=== PATIENT | female | born 1960 | race Caucasian/White ===

== ENCOUNTER 2019-07-15 15:28 | Outpatient (REF) | payer SELFPAY ==
[2019-07-15 16:30] LABS: Estmated Average Glucose 120; Hemoglobin A1C 5.8 % (4.0-6.0)
[2019-07-15 19:25] LABS: Chol HDL Ratio 4.97 mg/dL (0.0-4.40); Cholesterol 194 mg/dL (0-200); Glucose 90 mg/dL (65-115); HDL Cholesterol 39 mg/dL (60-100); LDL Cholesterol Calculated 113 mg/dL (50-129); Triglycerides 212 mg/dL (0-150)
== END 2019-07-15 15:29 | disposition home or self-care (01) ==
LOC: LAB 15:28
PROVIDERS: Family Provider Nurse Practitioner; PCP Nurse Practitioner; Visit Provider Dermatology
DX: Z13.9 Encounter for screening, unspecified (principal)
CPT/HCPCS: 80061; 82947; 83036

== ENCOUNTER → 2019-09-03 15:57 | Outpatient (BNVA) | payer BC, SELFPAY | PROVIDERS: Family Provider Nurse Practitioner; PCP Nurse Practitioner; Visit Provider Nurse Practitioner | DX: M25.562 Pain in left knee (principal); M17.12 Unilateral primary osteoarthritis, left knee | CPT/HCPCS: 73562 ==

== ENCOUNTER → 2020-03-03 08:35 | Outpatient (BNVA) | payer BC, SELFPAY | PROVIDERS: Family Provider Nurse Practitioner; PCP Nurse Practitioner; Visit Provider Nurse Practitioner | DX: E78.2 Mixed hyperlipidemia (principal); I10 Essential (primary) hypertension | CPT/HCPCS: 80053; 80061 ==

== ENCOUNTER 2020-03-30 11:18 | Outpatient (CLI) | payer BC, SELFPAY ==
--- NOTE | 2020-03-30 11:30 | MM_ITS ---
WS: [id number] BILATERAL DIGITAL DIAGNOSTIC MAMMOGRAM MAMMOGRAPHY WITH CAD CLINICAL INFORMATION: History breast left side COMPARISON: TECHNIQUE: Bilateral CC, MLO, and ML views. FINDINGS: Scattered fibroglandular densities bilaterally. Postoperative changes left breast with skin thickenin g. Dystrophic calcification. Parenchymal fibrosis. Lucent centered calcifications. Right breast is un changed in appearance. No suspicious focal mass, asymmetry, calcifications, or architectural distortion. No evidence of doyle gnancy. MM/[place] [id number] IMPRESSION: BI-RADS: 2-Benign FOLLOW UP: 1 Year Follow-up Recommend return to annual diagnostic mammography.
== END 2020-03-30 11:19 | disposition home or self-care (01) ==
LOC: RADSHAW 11:20
PROVIDERS: PCP Nurse Practitioner; Visit Provider Nurse Practitioner
DX: Z85.3 Personal history of malignant neoplasm of breast (principal)
CPT/HCPCS: 77066

== ENCOUNTER → 2020-09-19 09:20 | Outpatient (BNVA) | payer OTHER, SELFPAY | PROVIDERS: PCP Nurse Practitioner; Visit Provider Nurse Practitioner | DX: I10 Essential (primary) hypertension (principal); J30.1 Allergic rhinitis due to pollen; E78.2 Mixed hyperlipidemia | CPT/HCPCS: 80053; 80061; 84443 ==

== ENCOUNTER → 2021-03-07 08:00 | Outpatient (BNVA) | payer OTHER, SELFPAY | PROVIDERS: PCP Nurse Practitioner; Visit Provider Nurse Practitioner | DX: I10 Essential (primary) hypertension (principal); E78.2 Mixed hyperlipidemia | CPT/HCPCS: 80053; 80061; 81000 ==

== ENCOUNTER 2021-04-04 14:30 | Outpatient (CLI) | payer OTHER, SELFPAY ==
--- NOTE | 2021-04-04 14:35 | MM_ITS ---
WS: [email or web address] BILATERAL DIGITAL DIAGNOSTIC MAMMOGRAM MAMMOGRAPHY WITH CAD CLINICAL INFORMATION: HX OF BREAST CA COMPARISON: March 30, 2020 TECHNIQUE: Bilateral CC, MLO, and ML views. FINDINGS: Scattered fibroglandular densities bilaterally. Postoperative changes lumpectomy upper outer left primo ast with dystrophic and lucent centered calcifications. Associated parenchymal fibrosis. This is stab le in appearance compared to previous. No suspicious focal mass, asymmetry, calcifications, or architectural distortion. No evidence of doyle gnancy. MM/[place] [id number] IMPRESSION: BI-RADS: 2-Benign FOLLOW UP: 1 Year Follow-up Recommend return to annual diagnostic mammography.
== END 2021-04-04 14:31 | disposition home or self-care (01) ==
LOC: RADSHAW 14:33
PROVIDERS: PCP Nurse Practitioner; Visit Provider Nurse Practitioner
DX: Z85.3 Personal history of malignant neoplasm of breast (principal)
CPT/HCPCS: 77066

== ENCOUNTER → 2022-03-14 10:27 | Outpatient (BNVA) | payer OTHER, SELFPAY | PROVIDERS: PCP Nurse Practitioner; Visit Provider Nurse Practitioner | DX: I10 Essential (primary) hypertension (principal); E78.2 Mixed hyperlipidemia; Z12.39 Encounter for other screening for malignant neoplasm of breast | CPT/HCPCS: 80053; 80061; 81000; 84443; 85025 ==

== ENCOUNTER 2022-04-06 09:42 | Outpatient (CLI) | payer OTHER, SELFPAY ==
--- NOTE | 2022-04-06 09:53 | MM_ITS ---
WS: [email or web address] VIEWS: MLO, CC, and ML views both breasts. 3D digital tomosynthesis is also included in this exam. C omparisons 01/17/2018, 02/11/2019, 03/30/2020, 04/04/2021. Findings: There is an enlarging 5 mm ovoid nodule seen in the medial right breast probably near the 3:00 positi on. This is at posterior depth. No architectural distortion or suspicious calcification noted. Region al ultrasound and 90 degree lateral view of the right breast would be recommended for further workup. Stable appearing postoperative changes are noted in the upper outer quadrant of the left breast with no new finding in the left breast. Fatty MM/[place] [id number] Impression: BI-RADS: 0-Incomplete: Need additional imaging evaluation FOLLOW-UP: See Report This mammogram was also analyzed by the Computer Aided Detection System R2 Imag e Application Processor.
== END 2022-04-06 09:43 | disposition home or self-care (01) ==
LOC: RAD 09:43
PROVIDERS: PCP Nurse Practitioner; Visit Provider Nurse Practitioner
DX: Z85.3 Personal history of malignant neoplasm of breast (principal)
CPT/HCPCS: 77062; G0279

== ENCOUNTER 2022-04-25 14:54 | Outpatient (CLI) | payer OTHER, SELFPAY ==
--- NOTE | 2022-04-25 15:06 | US_ITS ---
WS: [email or web address] ULTRASOUND BREAST RIGHT TECHNIQUE: Ultrasound right breast focused area of concern. CLINICAL INFORMATION: ABNORMAL MAMMO/NODULE COMPARISON: April 06, 2022 FINDINGS: Previous mammogram reviewed. Small nodule in the inner RIGHT breast suspicious for tiny lymph node. S uggestion of a small fatty hilum. Ultrasound RIGHT breast lower inner quadrant. Normal underlying par enchymal tissue. No suspicious cystic or solid lesions. No lesions to target for biopsy. Recommend re turn to annual diagnostic mammography. US/US breast RT limited* [id number] IMPRESSION: BI-RADS 2 BENIGN Recommend return to annual diagnostic mammography.
== END 2022-04-25 14:55 | disposition home or self-care (01) ==
LOC: RAD 14:55
PROVIDERS: PCP Nurse Practitioner; Visit Provider Nurse Practitioner
DX: R92.8 Other abnormal and inconclusive findings on diagnostic imaging of breast (principal); R91.1 Solitary pulmonary nodule
CPT/HCPCS: 76642

== ENCOUNTER → 2022-09-24 13:47 | Outpatient (BNVA) | payer OTHER, SELFPAY | PROVIDERS: PCP Nurse Practitioner; Visit Provider Nurse Practitioner | DX: I10 Essential (primary) hypertension (principal); E78.5 Hyperlipidemia, unspecified | CPT/HCPCS: 80053; 80061 ==

== ENCOUNTER → 2023-03-19 09:22 | Outpatient (BNVA) | payer OTHER, SELFPAY | PROVIDERS: PCP Nurse Practitioner; Visit Provider Nurse Practitioner | DX: I10 Essential (primary) hypertension (principal); E55.9 Vitamin D deficiency, unspecified | CPT/HCPCS: 80053; 80061; 82306; 82607; 84443; 85025 ==

== ENCOUNTER 2023-04-29 10:56 | Outpatient (CLI) | payer OTHER, SELFPAY ==
--- NOTE | 2023-04-29 11:03 | MM_ITS ---
WS: [id number] DIAGNOSTIC BILATERAL DIGITAL BREAST TOMOSYNTHESIS MAMMOGRAPHY WITH CAD HISTORY: Z98.890 - Other specified postprocedural states, history of LEFT breast cancer. COMPARISON: 04/06/2020 and 04/04/2021 and 03/30/2020 TECHNIQUE: Bilateral craniocaudad, mediolateral oblique, and mediolateral views are submitted with to mosynthesis and SM. Computer aided detection utilized. Breast composition: There are scattered areas of fibroglandular density. Volume loss and postsurgical changes in the upper outer quadrant of the LEFT breast. Dystrophic calcifications are developing at the biopsy and lumpectomy site. Stable over multiple prior studies. RIGHT breast is negative. IMPRESSION: MM/[place] [id number] BI-RADS: 2-Benign FOLLOW UP: 1 Year Follow-up
== END 2023-04-29 10:57 | disposition home or self-care (01) ==
LOC: RAD 10:57
PROVIDERS: PCP Nurse Practitioner; Visit Provider Nurse Practitioner
DX: Z85.3 Personal history of malignant neoplasm of breast (principal); Z98.890 Other specified postprocedural states
CPT/HCPCS: 77062; G0279

== ENCOUNTER → 2023-07-15 13:44 | Outpatient (BNVA) | payer OTHER, SELFPAY | PROVIDERS: PCP Nurse Practitioner; Visit Provider Nurse Practitioner | DX: I10 Essential (primary) hypertension (principal) | CPT/HCPCS: 81000 ==

== ENCOUNTER → 2023-09-03 09:02 | Outpatient (BNVA) | payer OTHER, SELFPAY | PROVIDERS: PCP Nurse Practitioner; Visit Provider Student in an Organized Health Care Education/Training Program | DX: M25.562 Pain in left knee (principal); M25.561 Pain in right knee; M17.0 Bilateral primary osteoarthritis of knee | CPT/HCPCS: 73560; 73565 ==

== ENCOUNTER → 2023-09-04 10:03 | Outpatient (BNVA) | payer OTHER, SELFPAY | PROVIDERS: PCP Nurse Practitioner; Visit Provider Nurse Practitioner | DX: I10 Essential (primary) hypertension (principal); E78.2 Mixed hyperlipidemia; E55.9 Vitamin D deficiency, unspecified | CPT/HCPCS: 80053; 80061; 82306 ==

== ENCOUNTER → 2024-03-23 11:11 | Outpatient (BNVA) | payer OTHER, SELFPAY | PROVIDERS: PCP Nurse Practitioner; Visit Provider Nurse Practitioner | DX: I10 Essential (primary) hypertension (principal); E78.2 Mixed hyperlipidemia; E55.9 Vitamin D deficiency, unspecified | CPT/HCPCS: 80053; 80061; 82306; 85025 ==

== ENCOUNTER 2024-05-12 09:38 | Outpatient (CLI) | payer OTHER, SELFPAY ==
--- NOTE | 2024-05-12 10:00 | MM_ITS ---
WS: [email or web address] DIAGNOSTIC BILATERAL DIGITAL BREAST TOMOSYNTHESIS MAMMOGRAPHY WITH CAD HISTORY: Z98.890 - Other specified postprocedural states COMPARISON: 04/29/2023, 04/06/2022, 04/04/2021 TECHNIQUE: Bilateral craniocaudad, mediolateral oblique, and mediolateral views are submitted with to manpreet and BAM. Computer aided detection utilized. Breast composition: There are scattered areas of fibroglandular density. Volume loss LEFT breast from prior lumpectomy. Dystrophic calcifications and trabecular thickening at the surgical site. No recurrent mass. There is a new developing tight cluster of calcifications upper outer quadrant of the RIGHT breast ne ar 10:00 measuring approximately 5 mm. There may be an associated soft tissue mass with this group of calcifications. This area needs to be further evaluated at this time. MM/MM diag BI tomosynthesis [id number] IMPRESSION: BI-RADS: 0 - Incomplete: Need additional imaging evaluation. FOLLOW UP: Need Additional Imaging RIGHT breast: Spot compression views (CC and MLO). True ML. Ultrasound to follo w if abnormality persists.
== END 2024-05-12 09:39 | disposition home or self-care (01) ==
LOC: RAD 09:39
PROVIDERS: PCP Nurse Practitioner; Visit Provider Nurse Practitioner
DX: N63.11 Unspecified lump in the right breast, upper outer quadrant (principal); R92.323 Mammographic fibroglandular density, bilateral breasts; R92.1 Mammographic calcification found on diagnostic imaging of breast; Z98.890 Other specified postprocedural states
CPT/HCPCS: 77062; G0279

== ENCOUNTER 2024-06-09 09:36 | Outpatient (CLI) | payer OTHER, SELFPAY ==
--- NOTE | 2024-06-09 09:39 | US_ITS ---
WS: [email or web address] ADDITIONAL VIEWS RIGHT MAMMOGRAM WITH DIGITAL BREAST TOMOSYNTHESIS. RIGHT BREAST ULTRASOUND HISTORY: R92.8 - Other abnormal and inconclusive findings on diagn... COMPARISON: 05/12/2024, 04/29/2023 RIGHT MAMMOGRAM: Spot compression views with digital breast tomosynthesis and SM. Breast composition: There are scattered areas of fibroglandular density. 5 mm soft tissue mass with central coarse calcification measures 5 x 4 mm. New nodule compared to the study from 2022. Nodule with calcification is in the lateral RIGHT breast towards 10:00. Very superf icial mass. RIGHT BREAST ULTRASOUND 2-D and color Doppler imaging submitted. Hypoechoic mass with shadowing is identified at 10:00, 5 cm from the nipple. Mass with shadowing jamie ures 0.5 x 0.5 x 0.5 cm. There is no significant increased vascularity. There is a central calcificat ion. These findings correspond to the mammographic abnormality. US/US breast RT limited* [id number] IMPRESSION: BI-RADS: 4 - Suspicious Finding - Biopsy Should Be Considered. FOLLOW UP: Biopsy Recommended Ultrasound-guided biopsy recommended RIGHT breast mass at 10:00. Notified Dariel Tamez NP at 06/09/2024 10:33 AM. Message LEFT on the [employer] service.
--- NOTE | 2024-06-09 10:00 | MM_ITS ---
WS: [email or web address] ADDITIONAL VIEWS RIGHT MAMMOGRAM WITH DIGITAL BREAST TOMOSYNTHESIS. RIGHT BREAST ULTRASOUND HISTORY: R92.8 - Other abnormal and inconclusive findings on diagn... COMPARISON: 05/12/2024, 04/29/2023 RIGHT MAMMOGRAM: Spot compression views with digital breast tomosynthesis and SM. Breast composition: There are scattered areas of fibroglandular density. 5 mm soft tissue mass with central coarse calcification measures 5 x 4 mm. New nodule compared to the study from 2022. Nodule with calcification is in the lateral RIGHT breast towards 10:00. Very superf icial mass. RIGHT BREAST ULTRASOUND 2-D and color Doppler imaging submitted. Hypoechoic mass with shadowing is identified at 10:00, 5 cm from the nipple. Mass with shadowing jamie ures 0.5 x 0.5 x 0.5 cm. There is no significant increased vascularity. There is a central calcificat ion. These findings correspond to the mammographic abnormality. MM/MM diag RT tomosynthesis [id number] IMPRESSION: BI-RADS: 4 - Suspicious Finding - Biopsy Should Be Considered. FOLLOW UP: Biopsy Recommended Ultrasound-guided biopsy recommended RIGHT breast mass at 10:00. Notified Dariel Tamez NP at 06/09/2024 10:33 AM. Message LEFT on the [employer] service.
== END 2024-06-09 09:37 | disposition home or self-care (01) ==
LOC: RAD 09:37
PROVIDERS: PCP Nurse Practitioner; Visit Provider Nurse Practitioner
DX: R92.8 Other abnormal and inconclusive findings on diagnostic imaging of breast (principal); R92.321 Mammographic fibroglandular density, right breast; N63.11 Unspecified lump in the right breast, upper outer quadrant; R92.1 Mammographic calcification found on diagnostic imaging of breast
CPT/HCPCS: 76642; 77061; G0279

== ENCOUNTER 2024-06-24 12:06 | Outpatient (CLI) | payer OTHER, SELFPAY ==
--- NOTE | 2024-06-24 13:15 | US_ITS ---
WS: [email or web address] ULTRASOUND-GUIDED RIGHT BREAST BIOPSY CLINICAL INFORMATION: R92.8 - Other abnormal and inconclusive findings on diagn... FINDINGS: The procedure including risks, benefits, and complications were discussed with the patient who agreed to proceed. Using sterile technique patient was prepped and draped in the usual sterile fashion. After 1% lidocaine utilizing real-time ultrasound guidance 5 14-gauge cores were obtained of the RIGHT breast lesion at the 10 o'clock position 5 cm from the nipple. Subsequently a titanium clip was placed in the biopsy cavity. No immediate complications. Pathology demonstrates breast tissue with chronic inflammation and features suggestive of fat necrosis. US/[place] [id number] IMPRESSION: 1. Uncomplicated ultrasound-guided RIGHT breast biopsy. 2. The pathology demonstrates benign findings suggestive of fat necrosis. See pathology report for further detail. DENSITY: There are scattered areas of fibroglandular density. BI-RADS: 2 - Benign. FOLLOW UP: 1 Year Follow-up Recommend return to annual screening mammography.
== END 2024-06-24 12:07 | disposition home or self-care (01) ==
PROVIDERS: PCP Nurse Practitioner; Visit Provider Nurse Practitioner
DX: R92.8 Other abnormal and inconclusive findings on diagnostic imaging of breast (principal); R92.321 Mammographic fibroglandular density, right breast
CPT/HCPCS: 19083; 88305

== ENCOUNTER → 2024-12-15 16:26 | Outpatient (BNVA) | payer OTHER, SELFPAY | PROVIDERS: PCP Nurse Practitioner; Visit Provider Nurse Practitioner | DX: I10 Essential (primary) hypertension (principal); E78.2 Mixed hyperlipidemia; E55.9 Vitamin D deficiency, unspecified | CPT/HCPCS: 80053; 80061; 82306; 84443 ==